=== PATIENT | female | born 1990 | race Caucasian/White ===

== ENCOUNTER 2017-01-23 12:13 | Outpatient (CLI) | payer OTHER ==
--- NOTE | 2017-01-23 13:00 | DIAGNOSTIC IMAGING REPORT ---
PROCEDURE: XR FOOT 3 VIEWS - LEFT INDICATION: LEFT FOOT PAIN TECHNIQUE: Three views. COMPARISON: None. FINDINGS: Osseous structures and joint spaces are normal. IMPRESSION: 1. Normal left foot.
== END 2017-01-23 23:00 ==
LOC: XR SRH 12:13
DX: M79.672 Pain in left foot (principal)